=== PATIENT | male | born 1990 | race Caucasian/White ===

== ENCOUNTER → 2022-07-16 10:42 | Outpatient (CLI) | payer BC, SELFPAY ==
--- NOTE | ~2022-07-16 | XR_ITS ---
EXAMINATION: XR chest 2V 07/16/2022 10:56 INDICATION: Tobacco use PROCEDURE: 2 view chest COMPARISON: 12/23/2019 FINDINGS: The lungs are clear. The cardiomediastinal silhouette is within normal limits. There are no pleural effusions. There is no pneumothorax suspected. IMPRESSION: 1: NO ACUTE CARDIOPULMONARY DISEASE. Reviewed, dictated and finalized at location B.
== END ==
LOC: EXPCRAD 10:44
PROVIDERS: PCP Emergency Medicine; Visit Provider Emergency Medicine
DX: Z72.0 Tobacco use (principal)
CPT/HCPCS: 71046

== ENCOUNTER 2025-10-19 10:04 | Emergency (ER) | payer BC, SELFPAY ==
--- NOTE | ~2025-10-19 | CT_ITS ---
EXAMINATION: CTA BRAIN/CAROTID DATE: 10/19/2025 12:45 INDICATION: Paresthesias TECHNIQUE: Computed tomographic angiography (CTA) of the head and neck was performed with 100 mL Omnipaque-350 intravenous contrast. Multiplanar reconstructions and maximum intensity projection 3D-reconstructions of the carotid arteries and of the intracranial arteries were created by the technologist on a separate workstation. Automated exposure control and iterative reconstruction technique were employed.The dose-length product was 1199.31 mGy-cm. COMPARISON: Head CT dated 10/19/2025 FINDINGS: Intracranial arteries Vertebral arteries are codominant. There is no hemodynamically significant stenosis in the vertebral, basilar and internal carotid arteries. Both A1 and P1 segments are patent. Patent anterior communicating artery and tiny patent bilateral posterior communicating arteries. There are no aneurysms identified. Cerebral arterial arborization appears symmetric. Mild emphysema. 6 mm subpleural nodule at the posterior right upper lobe. Carotid arteries: The aortic arch and the great vessels arising from the arch are normal in caliber with no dissection or hemodynamically significant stenosis. There is no evident atherosclerotic plaque with 0% stenosis of the right left carotid bulbs relative to normal distal artery lumen diameter (NASCET criteria). Bilateral vertebral arteries are codominant with no evidence stenosis. IMPRESSION: 1. 0% stenosis of the right left carotid bulbs relative to normal distal artery lumen diameter (NASCET criteria). 2. Unremarkable cerebral CT angiogram with no hemodynamically significant stenosis, thrombosis or aneurysm. 3. Mild emphysema with 6 mm indeterminate pulmonary nodule in the right upper lobe. Recommend six-month follow-up low-dose noncontrast chest CT. Reviewed, dictated and finalized at location A. UNTANT TAX IMPRESSION: 1. 0% stenosis of the right left carotid bulbs relative to normal distal artery lumen diameter (NASCET criteria). 2. Unremarkable cerebral CT angiogram with no hemodynamically significant steno sis, thrombosis or aneurysm. 3. Mild emphysema with 6 mm indeterminate pulmonary nodule in the right upper l obe. Recommend six-month follow-up low-dose noncontrast chest CT.
--- NOTE | ~2025-10-19 | XR_ITS ---
EXAMINATION: XR chest 1V portable COMPARISON: No comparisons available. HISTORY: arm numbness/tingling FINDINGS: The lungs are clear, no effusion. No pneumothorax. Heart is normal size. Mediastinal and hilar contours are within normal limits. Bony thorax no acute abnormality. Miscellaneous: None Impression: No acute cardiopulmonary abnormality. Reviewed, dictated and finalized at location P. ICAL TREATMENT OPERATOR Impression: No acute cardiopulmonary abnormality.
--- NOTE | ~2025-10-19 | CT_ITS ---
EXAMINATION: CT brain wo con DATE: 10/19/2025 10:59 INDICATION: Left arm numbness TECHNIQUE: Computed tomography (CT) of the head was performed without intravenous contrast. The dose-length product was 605.33 mGy-cm. COMPARISON: None FINDINGS: No gross intracranial mass effect or hemorrhage. No large acute ischemic event. Calvarial structures appear normal. IMPRESSION: 1. Noncontrast head CT within normal limits. No large acute ischemic event mass effect or hemorrhage. Reviewed, dictated and finalized at location A. IDENT OF [place]
[2025-10-19 10:07] VITALS: BP 158/98; PULSE 64; RESP 18; TEMP 36.4; O2SAT 100
--- NOTE | 2025-10-19 10:27 | ECG_ITS ---
Test Date: 2025-10-19 10:36:50 Measurements Intervals [place] Rate: 59 P: 43 NE: 163 QRS: 9 QRSD: 102 T: 69 QT: 385 QTc: 384 Interpretive Statements SINUS BRADYCARDIA NONSPECIFIC T-WAVE ABNORMALITY No previous ECG available for comparison Electronically Signed On 10-19-2025 14:43:32 BARGE PILOT by Romeo Elder M.D.
[2025-10-19 10:41] VITALS: BP 142/91; PULSE 64; RESP 15; RESP 17; O2SAT 99
[2025-10-19 10:47] VITALS: BP 142/91; PULSE 63; RESP 20; O2SAT 99
[2025-10-19 10:48] VITALS: PULSE 65
[2025-10-19 10:50] LABS: Hematocrit 46.0 % (42.0-52.0); Hemoglobin 16.2 g/dL (14.0-18.0); Immature Granulocyte Percent A 0.3 % (0-0.5); Lymphocytes Absolute Auto 2.09 K/mm3 (0.9-3.2); Mean Corpuscular HGB Conc 35.2 g/dl (32-36); Mean Corpuscular Hemoglobin 28.0 pg (26-34); Mean Corpuscular Volume 79.6 fl (80-100); Nucleated Red Blood Cells Absolute Auto 0.000 K/mm3 (0.0-0.012); Nucleated Red Blood Cells Perc 0.0 % (0.0-0.2); Platelet Count Result 180 k/mm3 (150-375); Red Blood Count 5.78 M/mm3 (4.6-6.20); White Blood Count 7.0 K/mm3 (4.5-10.0)
[2025-10-19 11:01] LABS: Alanine Aminotransferase 68 U/L (6-50); Albumin Level 4.7 g/dL (3.5-5.1); Alkaline Phosphatase 59 U/L (38-126); Anion Gap 11 mmol/L (4-12); Aspartate Amino Transferase 37 U/L (17-59); Bilirubin,Total 0.5 mg/dL (0.2-1.3); Blood Urea Nitrogen 19 mg/dL (9-20); Calcium 9.5 mg/dL (8.4-10.2); Carbon Dioxide 21 mmol/L (22-30); Chloride 105 mmol/L (98-107); Estimated CRCL calculation 91 ml/min; Estimated Glomerular Filt Rate > 60; Glucose 104 mg/dL (65-110); INR 1.0; Potassium 3.8 mmol/L (3.4-5.0); Prothrombin Time 13.4 Seconds (11.1-14.7); Sodium 137 mmol/L (137-145); Total Protein 7.6 g/dL (6.3-8.2)
[2025-10-19 11:02] LABS: Partial Thromboplastin Time 25.6 Seconds (22.3-36.8)
[2025-10-19 11:12] LABS: Troponin I < 0.012 ng/mL (0.000-0.034)
--- OUTSIDE RECORDS SUMMARY | 2025-10-19 11:54 | XMS_ITS | Clinical Summary ---
Author Organization [facility] Address [address] [place] [address] Care Team Providers Care Cdl Bulk Driver Name Role Phone Nelsy Waggoner Primary Care Provider + Allergies No known active allergies Medications HYDROcodone-seven taminophen (NORCO) 5-325 mg per tabletIndicatio ns:Pain Take 1-2 tablets by mouth every 6 (six) hours as needed for pain 30 tablet 2 Active Additional Information Patient not taking.Reported on 06/23/2024 HYDROcodone-seven taminophen (NORCO) 5-325 mg per tabletIndicatio ns:Pain Take 1-2 tablets by mouth every 6 (six) hours as needed for pain 25 tablet 2 Active Additional Information Patient not taking.Reported on 06/23/2024 hydroCHLOROthia zide (MICROZIDE) 12.5 mg capsule Take 1 capsule (12.5 mg total) by mouth hand tool lapper before breakfast 4 Active sertraline (ZOLOFT) 50 mg tablet Take 1 tablet (50 mg total) by mouth daily 4 Active ubrogepant (UBRELVY) 100 mg tablet Take 1 tablet (100 mg total) by mouth 2 (two) times a day as needed 4 Active topiramate (TOPAMAX) 25 mg tablet Take 1 tablet (25 mg total) by mouth daily 4 Active gabapentin (NEURONTIN) 300 mg capsule Take 1 capsule (300 mg total) by mouth 3 times a day 90 capsule 5 Active Active Problems Problem Noted Date Diagnosed Date Dizziness and giddiness 06/24/2024 Left carpal tunnel syndrome 04/14/2022 Right carpal tunnel syndrome 04/14/2022 Ganglion cyst 04/14/2022 Chest pain 10/08/2021 Family history of coronary artery disease 2020 BMI 29.0-29.9,adult 10/08/2021 Mixed hyperlipidemia 10/08/2021 Cigarette nicotine dependenc e with nicotine-induced disorder 12/06/2019 Encounters Date Type Department Care Team Description 08/01/2025 12:10 PM CDT - 08/01/2025 2:42 PM CDT Emergency [facility] Emergency Department [address] [place] [phone] Paresthesias (Primary Dx) Discharge Disposition: Discharge to home or self care from Last 3 Months Surgical History Surgery Date Site/Laterality Comments SHOULDER SURGERY 11/30/2017 - 11/29/2018 Right repair fx collarbone with hardware HARDWARE REMOVAL Right hardware removed from shoulder CARPAL TUNNEL RELEASE 07/15/2022 Right CARPAL TUNNEL RELEASE 07/29/2022 Left LT. CTR Medical History Medical History Date Comments Chest pain 2020 had EKG and Stre ss test--cleared by cardio Covid-19 06/30/2022 Anxiety Ear problems Dizziness Tinnitus Headache Family History Medical History Relation Name Comments Coronary artery disease Father Heart attack Father Stroke Mother Relation Name Status Comments Father Mother Social History Tobacco Use Types Packs/Day Years Used Date Smoking Tobacco: Every Day Vaping Smokeless Tobacco: Current Tobacco Cessation:Ready to Q uit: Not Asked; Counseling Given: Not Answered AUDIT-C Answer Date Recorded Q1: How often do you have a drink containing alc ohol? 2-4 times a month 06/23/2024 Q2: How many drinks containi ng alcohol do you have on a typical day when you are drinking? 1 or 2 06/23/2024 Frequency of Binge Drinking Not on file 05/31 Personal Safety Answer Date Recorded Have you ever been in or are you currently in a harmful physical or emotional relationship or is someone making you feel afraid or unsafe? 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 Gender Identity Not on file Sexual Orientation Not on file Last Filed Vital Signs Vital Sign Reading Time Taken Comments Blood Pressure 145/91 08/01/2025 10:42 AM CDT Pulse 56 08/01/2025 10:42 AM CDT Temperature 36.8 C (98.2 F) 08/01/2025 10:42 AM CDT Respiratory Rate 20 08/01/2025 10:42 AM CDT Oxygen Saturation 97% 08/01/2025 10:42 AM CDT Inhaled Oxygen Concentration - - Weight 99.8 kg (220 lb) 08/01/2025 10:42 AM CDT Height 177.8 cm (5' 10) 08/01/2025 10:42 AM CDT Body Mass Index 31.57 08/01/2025 10:42 AM CDT Plan of Treatment Health Maintenance Due Date Last Done Comments Depression Screening 1989 Hepatitis C Screening 1989 Varicella Vaccines (1 of 2 - 13+ 2-dose series) 2002 Regular Well Visit/Exam 18-64 2007 Pneumococcal vaccine <65 (1 of 2 - PCV) 2008 HPV Vaccines (1 - 3-dose SCDM series) 2016 Influenza Vaccine (#1) 2025 DTaP/Tdap/Td Vaccine (4 - Td or Tdap) 12/29/2033 12/29/2023, 03/26/2014, 03/26/1995 Hepatitis B Screening Completed 04/01/2000 , 11/12/1999, 10/08/1999 Insurance [facility] [employer] Care Teams Cdl Bulk Driver Relationship Specialty Start Date End Date Nelsy aWggoner PA [address] [place] [address] [phone] PCP - General Nurse Practitioner 05/25/24
--- OUTSIDE RECORDS SUMMARY | 2025-10-19 11:54 | XMS_ITS | Encounter Summary ---
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 us Historical Provider Final Res ult documented in this encounter Visit Diagnoses Not on filedocumented in this encounter Additional Health Concerns Infection Onset Date Last Indicated Resolved Time COVID19 06/30/2022 06/30/2022 07/10/2022 3:05 AM CDT COVID: Recovered Comment:Added based on recent COVID infection. 07/10/2022 07/10/2022 11/07/2022 3:[address] documented as of this encounter Care Teams Hydropulper Relationship Specialty Start Date End Date No, Physician PCP - General 08/30/21 05/24/24 Nelsy Waggoner PA [address] [place] [address] PCP - General Nurse Practitioner 05/25/24 documented as of this encounter
--- OUTSIDE RECORDS SUMMARY | 2025-10-19 11:54 | XMS_ITS | Encounter Summary ---
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 Historical Provider Final Res ult * PROCEDURE - RESULT (06/03/2016 12:00 AM CDT) Narrative 06/03/2016 12:00 AM CDT Ordered by an unspecified provider. Historical Provider Final Res ult documented in this encounter Visit Diagnoses Not on filedocumented in this encounter Additional Health Concerns Infection Onset Date Last Indicated Resolved Time COVID19 06/30/2022 06/30/2022 07/10/2022 3:05 AM CDT COVID: Recovered Comment:Added based on recent COVID infection. 07/10/2022 07/10/2022 11/07/2022 3:[address] documented as of this encounter Care Teams Gis Software Developer Relationship Specialty Start Date End Date No, Physician PCP - General 08/30/21 05/24/24 Nelsy Waggoner PA [address] [place] [id number] PCP - General Nurse Practitioner 05/25/24 documented as of this encounter
--- NOTE | 2025-10-19 12:38 | ED.GENADULT ---
HPI - General Adult General Chief complaint: Neuro Symptoms/Deficit Stated complaint: left arm and face numb Time Seen by Provider: 10/19/25 11:55 History of Present Illness HPI narrative: 35-year-old male presenting to the emergency department for evaluation for multiple issues all of which are chronic. Patient states he has been having left arm tingling for the last few years and does have carpal tunnel surgery planned. Patient reports he has had intermittent dizziness that is been occurring for the last few years. Patient describes this as a moving sensation and has not for the he is going to pass out denies any change in vision. Patient also does report having some numbness under his left eye and also reports this is intermittent and not new. Patient reports he has had extensive workup for these issues. Patient states he has had recent MRIs and they found nothing. Patient denies any coughs colds or fevers, denies any change in hearing or ear pain. Patient states that he has tried meclizine for the vertigo and it has helped previously. Patient states that the reason he sought evaluation today is that the symptoms had acutely worsened but have since improved. Patient is in no distress at time of evaluation. Related Data Allergies Allergy/AdvReac Type Severity Reaction Status Date / Time No Known Allergies Allergy Verified 10/19/25 10:48 Review of Systems Review of Systems: All systems reviewed & are unremarkable except as noted in HPI and below PMFSH Past Medical History Medical History (Updated 10/19/25 @ 21:48 by Jermaine Franco MD) Right clavicle fracture Surgical History Surgical History (Updated 12/23/19 @ 12:05 by Antonietta Lu) No significant past surgical history Family History Family History (Updated 12/23/19 @ 12:05 by Antonietta Lu) Father Acute myocardial infarction Social History Social History (Updated 12/23/19 @ 12:04 by Antonietta Lu) Smoking status: Current every day smoker Alcohol intake: never Substance use: never Exam Narrative: APPEARANCE: Well appearing, no pain, no distress, well-nourished. HEAD: normocephalic, atraumatic. EYES: PERRLA/EOMI, conjunctivae clear. NOSE: Normal no drainage EARS:TMS clear with good light reflex. THROAT: Pharynx clear, no exudate. NECK: Supple. No adenopathy, no masses. RESPIRATORY: Airway patent, respirations nonlabored. Clear to auscultation bilaterally, no rales, rhonchi, wheezing. CARDIOVASCULAR: Regular rate and rhythm without murmurs rubs or gallops. ABDOMINAL: Soft, nontender, nondistended, normal bowel sounds MUSCULOSKELETAL: Moves all extremities. Strength/ROM intact, No edema, No calf tenderness. NEURO: Alert. Cranial nerves II through XII intact. Good gait. Good coordination SKIN: Warm, dry. Normal Color Course Vital Signs Vital signs: Vital Signs Temperature 97.6 F 10/19/25 10:07 Pulse Rate 64 10/19/25 10:07 Respiratory Rate 18 10/19/25 10:07 Blood Pressure 158/98 H 10/19/25 10:07 Pulse Oximetry 100 10/19/25 10:07 Temperature 97.6 F 10/19/25 10:07 Pulse Rate 69 10/19/25 14:07 Respiratory Rate 16 10/19/25 14:07 Blood Pressure 135/86 10/19/25 14:07 Pulse Oximetry 98 10/19/25 14:07 Oxygen Delivery Room Air 10/19/25 10:41 Medical Decision Making [facility] Narrative Medical decision making narrative: 35-year-old male presents to the emergency department for evaluation for multiple complaints. patient is currently afebrile with leukocytosis hemoglobin of 16.2. INR 1.0. No acute abnormalities on his CMP chest x-ray shows no acute cardiopulmonary mallet he had CT showed no acute findings CT brain also showed no significant acute findings. Suspect patient is having issues with sinusitis causing the facial paresthesia and the vertigo symptoms. Low concern for TIA, CVA, Lovell's palsy Patient was advised to continue have close follow-up with his physicians. Patient was provided meclizine for vertigo control. All questions concerns were addressed and patient was comfortable with the plan for discharge and close follow-up. Differential Diagnosis Differential Diagnosis: TIA CVA, Lovell's palsy, sinusitis, subdural hematoma, subarachnoid hemorrhage, radiculopathy Vital Signs Vital Signs: Vital Signs Temperature 97.6 F 10/19/25 10:07 Pulse Rate 64 10/19/25 10:07 Respiratory Rate 18 10/19/25 10:07 Blood Pressure 158/98 H 10/19/25 10:07 Pulse Oximetry 100 10/19/25 10:07 Temperature 97.6 F 10/19/25 10:07 Pulse Rate 69 10/19/25 14:07 Respiratory Rate 16 10/19/25 14:07 Blood Pressure 135/86 10/19/25 14:07 Pulse Oximetry 98 10/19/25 14:07 Oxygen Delivery Room Air 10/19/25 10:41 Lab Data Lab results reviewed: Yes I reviewed the patient's lab results. 10/19/25 10:44 10/19/25 10:44 Labs: Lab Results 10/19/25 10/19/25 Range/Units 10:40 10:44 WBC 7.0 (4.5-10.0) K/mm3 RBC 5.78 (4.6-6.20) M/mm3 Hgb 16.2 (14.0-18.0) g/dL Hct 46.0 (42.0-52.0) % MCV 79.6 L (80-100) fl MCH 28.0 (26-34) pg MCHC 35.2 (32-36) g/dl RDW 12.6 (11.5-14.5) % Plt Count 180 (150-375) k/mm3 MPV 10.4 (7.4-10.4) fl Immature Gran % (Auto) 0.3 (0-0.5) % Neut % (Auto) 58.2 (45.5-73.1) % Lymph % (Auto) 29.9 (18.3-44.2) % Emmons % (Auto) 9.9 H (2.6-8.5) % Eos % (Auto) 1.4 (0-4.4) % Baso % (Auto) 0.3 (0.2-1.2) % Lymph # (Auto) 2.09 (0.9-3.2) K/mm3 Emmons # (Auto) 0.7 H (0.1-0.6) K/mm3 Eos # (Auto) 0.1 (0-0.3) K/mm3 Baso # (Auto) 0.0 (0.0-0.1) K/mm3 Abs Immat Gran (auto) 0.02 (0.00-0.031) K/mm3 Absolute Neuts (auto) 4.1 (1.3-6.7) K/mm3 Absolute Nucleated RBC 0.000 (0.0-0.012) K/mm3 Nucleated RBC % 0.0 (0.0-0.2) % PT 13.4 (11.1-14.7) Seconds INR 1.0 APTT 25.6 (22.3-36.8) Seconds Sodium 137 (137-145) mmol/L Potassium 3.8 (3.4-5.0) mmol/L Chloride 105 (98-107) mmol/L Carbon Dioxide 21 L (22-30) mmol/L Anion Gap 11 (4-12) mmol/L BUN 19 (9-20) mg/dL Creatinine 1.20 (0.7-1.3) mg/dL Estim Creat Clear Calc 91 ml/min Estimated GFR > 60 (59 - ) Glucose 104 (65-110) mg/dL POC Capillary Glucose 116 H (65-105) mg/dl Calcium 9.5 (8.4-10.2) mg/dL Total Bilirubin 0.5 (0.2-1.3) mg/dL AST 37 (17-59) U/L ALT 68 H (6-50) U/L Alkaline Phosphatase 59 (38-126) U/L Troponin I < 0.012 (0.000-0.034) ng/mL Total Protein 7.6 (6.3-8.2) g/dL Albumin 4.7 (3.5-5.1) g/dL Imaging Data Attestation: I personally reviewed and interpreted this imaging study as follows: My impression: Chest x-ray: No acute cardiopulmonary abnormality Radiologist's impression: Impressions Head CT 10/19/25 10:59 IMPRESSION: 1. Noncontrast head CT within normal limits. No large acute ischemic event mass effect or hemorrhage. Chest X-Ray 10/19/25 11:24 Impression: No acute cardiopulmonary abnormality. Head/Neck CTA 10/19/25 12:54 IMPRESSION: 1. 0% stenosis of the right left carotid bulbs relative to normal distal artery lumen diameter (NASCET criteria). 2. Unremarkable cerebral CT angiogram with no hemodynamically significant stenosis, thrombosis or aneurysm. 3. Mild emphysema with 6 mm indeterminate pulmonary nodule in the right upper lobe. Recommend six-month follow-up low-dose noncontrast chest CT. Discharge Plan Discharge Clinical Impression: Vertigo, Paresthesia Patient Disposition: Home Condition: Stable Instructions: Antibiotic Form Additional Instructions: Meclizine as needed for vertigo control. Naproxen as directed. Continue to have close follow-up with your physicians. Patient Language: Slovenian Prescriptions: New naproxen [Naprosyn] 500 mg tablet 500 mg PO BID 7 Days Qty: 14 0RF No Action naproxen 500 mg tablet 500 mg PO BID Qty: 20 0RF Follow-up/Referrals: Rosaline,FAZAL Whittington [Primary Care Provider] Quality Stroke Scale Stroke Scale 1: Stroke scale date:: 10/19/25 Stroke scale time:: 12:40 1a Level of consciousness: alert-0 1b Level of consciousness questions: answers both correctly-0 1c Level of consciousness commands: obeys both correctly-0 2 Best gaze: normal-0 3 Visual: no visual loss-0 4 Facial palsy: normal-0 5a Motor: left arm: no drift-0 5b Motor: right arm: no drift-0 6a Motor: left leg: no drift-0 6b Motor: right leg: no drift-0 7 Limb ataxia: absent-0 8 Sensory: normal-0 9 Best language: no aphasia-0 10 Dysarthria: normal-0 11 Extinction and inattention: no abnormality-0 Level:: 0
[2025-10-19] MEDS: MECLIZINE HCL 25 MG TABLET PO (12:56)
[2025-10-19] MEDS: LACTATED RINGERS 1,000 ML 999 ML IV CONT (12:56)
[2025-10-19 14:07] VITALS: BP 135/86; PULSE 69; RESP 16; O2SAT 98
--- OUTSIDE RECORDS SUMMARY | 2025-10-19 14:43 | XMS_ITS | Encounter Summary ---
Author Organization [facility] - [facility] Address [address] [place] [address] Care Team Providers Care Earth Science Laboratory Technician Name Role Phone Nelsy Waggoner Primary Care Provider [phone] Russell Molina MD Unavailable [phone] Encounter Details Date Type Department Care Team (Late st Contact Info) Description 08/10/2024 [employer] Message [facility] Patient Accounts [address] [place], [place] [id number] [facility] Provider Action Needed Social History Tobacco Use Types Packs/Day Years Used Date Smoking Tobacco: Former Cigarettes 2 20 0 11/30/2003 - 11/30/2023 Smokeless Tobacco: Never Alcohol Use Standard Drinks/Week Comments Yes 0 (1 standard drink = 0.6 oz pur e alcohol) socially AUDIT-C Answer Date Recorded Frequency of Alcohol Consumption Monthly or less 09/15/2019 Average Number of Drinks 1 or 2 019 Frequency of Binge Drinking Less than monthly PHQ-2 Answer Date Recorded Patient Health Questionnaire-2 Score 0 04/13/2024 Sex and Gender Information Value Date Recorded Sex Assigned at Male 12/16/2024 8:52 AM SCIENCE TECHNICIAN Legal Sex Male 10:34 PM SCIENCE TECHNICIAN Gender Identity Male 12/16/2024 8:52 AM SCIENCE TECHNICIAN Sexual Orientation Not on file 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 Not on file Not on file documented as of this encounter Plan of Treatment Upcoming Encounters Date Type Department Care Team (Late st Contact Info) Description 10/31/2025 10:00 AM SCIENCE TECHNICIAN Office Visit [facility] [address] [place] [phone] Sherwin Garcia MD [address] [place] [address] documented as of this encounter Visit Diagnoses Not on filedocumented in this encounter Care Teams Earth Science Laboratory Technician Relationship Specialty Start Date End Date Nelsy Waggoner APNP [address] [place] [address] PCP - General NURSE PRACTITIONER 09/15/19 Russell Molina MD [address] [facility] [address] [place] [phone] [place] Centralized Traffic Control Operator CARDIOVASCULAR DISEASE 01/04/20 documented as of this encounter
--- OUTSIDE RECORDS SUMMARY | 2025-10-19 14:43 | XMS_ITS | Encounter Summary ---
Author Organization [facility] Address [address] [place] [address] Care Team Providers Care Occupational Therapy Supervisor Name Role Phone Nelsy Waggoner Primary Care Provider [phone] Russell Molina MD Unavailable [phone] Encounter Details Date Type Department Care Team (Late st Contact Info) Description 05/07/[address] [facility] [address] [place], [place] [id number] , Generic Conversion, Social History Tobacco Use Types Packs/Day Years Used Date Smoking Tobacco: Never Assessed Sex and Gender Information Value Date Recorded Sex Assigned at Male 12/16/2024 8:52 AM DESIGNER ARCHITECT Legal Sex Male 10:34 PM DESIGNER ARCHITECT Gender Identity Male 12/16/2024 8:52 AM DESIGNER ARCHITECT Sexual Orientation Not on file documented as of this encounter Plan of Treatment Upcoming Encounters Date Type Department Care Team (Late st Contact Info) Description 10/31/2025 10:00 AM DESIGNER ARCHITECT Office Visit [facility] Medical [facility] Mult[facility]pec[facility]ty [facility] - [facility] [address] [facility], [address] [place] [address] Sherwin Garcia MD [address] [place] [address] documented as of this encounter Visit Diagnoses Not on filedocumented in this encounter Care Teams Occupational Therapy Supervisor Relationship Specialty Start Date End Date Nelsy Waggoner APNP [address] [place] [address] PCP - General NURSE PRACTITIONER 09/15/19 Russell Molina MD 3 [facility] [address] [place] [phone] [place] Business Management Associate CARDIOVASCULAR DISEASE 01/04/20 documented as of this encounter
--- OUTSIDE RECORDS SUMMARY | 2025-10-19 14:43 | XMS_ITS | Encounter Summary ---
Author Organization [facility] Address [address] [place] [address] Care Team Providers Care Take Up Operator Name Role Phone Nelsy Waggoner Primary Care Provider [phone] Russell Molina MD Unavailable [phone] Encounter Details Date Type Department Care Team (Late Contact Info) Description 08/08/2024 [employer] Message Enc [facility] Medical [facility] Mult[facility]pec[facility]ty Care - [address], [address] [place] [phone] [place] Provider RESULTS Social History Tobacco Use Types Packs/Day Years [...] Sex Assigned at Male 12/16/2024 8:52 AM INDUSTRIAL TWISTING MACHINE OPERATOR Legal Sex Male 10:34 PM INDUSTRIAL TWISTING MACHINE OPERATOR Gender Identity Male 12/16/2024 8:52 AM INDUSTRIAL TWISTING MACHINE OPERATOR Sexual Orientation Not on file 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 Not on file Not on file documented as of this encounter Plan of Treatment Upcoming Encounters Date Type Department Care Team (Late Contact Info) Description 10/31/2025 10:00 AM INDUSTRIAL TWISTING MACHINE OPERATOR Office Visit [facility] Mult[facility] - [facility] [address] [facility], [address] [place] [phone] Sherwin Garcia MD [address] [place] [address] documented as of this encounter Visit Diagnoses Not on filedocumented in this encounter Care Teams Take Up Operator Relationship Specialty Start Date End Date Nelsy Waggoner APNP [address] [place] [address] PCP - General NURSE PRACTITIONER 09/15/19 Russell Molina MD 3 [facility] [address] [place] [phone] [place] Carburizing Furnace Operator CARDIOVASCULAR DISEASE 01/04/20 documented as of this encounter
--- OUTSIDE RECORDS SUMMARY | 2025-10-19 14:43 | XMS_ITS | Clinical Summary ---
Author Organization [facility] Address [address] [place] [address] Care Team Providers Care Security Officer Name Role Phone Nelsy Waggoner Primary Care Provider [phone] Russell Molina MD Unavailable [phone] Allergies No known active allergies Medications busPIRone (BUSPAR) 10 MG tabletIndication s:Anxiety Take 1 tablet (10 mg total) by mouth 2 (two) times daily. 180 tablet 1 03/16/20 25 Active buPROPion XL (WELLBUTRIN XL) 150 MG 24 hr tabletIndication s:Anxiety Take 1 tablet (150 mg total) by mouth daily. 90 tablet 1 03/16/20 25 Active hydrOXYzine (ATARAX) 25 MG tabletIndication s:Anxiety TAKE 1 TABLET BY MOUTH ONCE DAILY NEEDED 30 tablet 04/25/20 25 Active ubrogepant (UBRELVY) 100 MG tabletIndication s:Migraine without aura, not intractable, without status migrainosus Take 1 tablet (100 mg total) by mouth 2 (two) times daily as needed. Max of 2 tablets (200 mg) in 24 hours 16 tablet 11 04/25/20 25 Active topiramate (TOPAMAX) 25 MG tabletIndication s:Migraine without aura, not intractable, without status migrainosus Take 1 tablet (25 mg total) by mouth nightly at bedtime. 30 tablet 11 04/25/20 25 Active clonazePAM (KLONOPIN) 0.5 MG tabletIndication s:Anxiety Take 1 tablet (0.5 mg total) by mouth 2 (two) times daily as needed for Anxiety. 10 tablet 06/08/20 25 Active hydroCHLOROthiaz nicolás (MICROZIDE) 12.5 MG capsuleIndicatio ns:Primary hypertension Take 1 capsule by mouth once daily 90 capsule 10/11/20 25 Active hydroCHLOROthiaz nicolás (MICROZIDE) 12.5 MG capsuleIndicatio ns:Primary hypertension Take 1 capsule (12.5 mg total) by mouth daily. 90 capsule 3 09/20/20 24 025 Discontinued Active Problems Problem Noted Date Diagnosed Date Dizziness and giddiness 06/24/2024 Ganglion cyst 04/14/2022 Left carpal tunnel syndrome 04/14/2022 Right carpal tunnel syndrome 04/14/2022 Family history of coronary artery disease 2020 Chest pain 10/08/2021 Mixed hyperlipidemia 10/08/2021 Cigarette nicotine dependence without complicati on 12/06/2019 Encounters Date Type Department Care Team Description 08/01/2025 Scan [facility] Scanned, [facility] from Last 3 Months Immunizations Immunization Administration Dates Next Due Dtp 03/26/1995 Hepatitis B Pediatric 04/01/2000,11/12/1999,07/1999 MMR 03/26/1995 Opv 03/26/1995 Tdap (Adacel) 12/29/2023,03/26/2014 Family History Medical History Relation Comments Heart Attack Father Heart Disease Father first heart jaren ck at age 57 Hypertension Maternal Grandfather Lung Cancer Maternal Grandfather Other Maternal Uncle Hypertension Mother Stroke Mother autoimmune disorder, unspecified Mother Hypertension Paternal Grandmother Other Sister Breast Cancer Neg Hx Colon Cancer Neg Hx Relation Status Comments Father Alive Maternal Grandfather Maternal Uncle Mother Alive Paternal Grandmother Sister Social History Tobacco Use Types Packs/Day Years Used Date Smoking Tobacco: Former Cigarettes 2 20 0 11/30/2003 - 11/30/2023 Smokeless Tobacco: Never Tobacco Cessation:Counseling Given: Yes Alcohol Use Standard Drinks/Week Comments Yes 0 (1 standard drink = 0.6 oz pur e alcohol) socially AUDIT-C Answer Date Recorded Frequency of Alcohol Consumption Monthly or less 09/15/2019 Average Number of Drinks 1 or 2 019 Frequency of Binge Drinking Less than monthly PHQ-2 Answer Date Recorded Patient Health Questionnaire-2 Score 0 03/16/2025 Sex and Gender Information Value Date Recorded Sex Assigned at Male 12/16/2024 8:52 AM HIGH SCHOOL COUNSELOR Legal Sex Male 10:34 PM HIGH SCHOOL COUNSELOR Gender Identity Male 12/16/2024 8:52 AM HIGH SCHOOL COUNSELOR Sexual Orientation Not on file 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 Not on file Not on file Not on file Last Filed Vital Signs Vital Sign Reading Time Taken Comments Blood Pressure 137/103 05/28/2025 11:47 PM CDT Pulse 65 05/28/2025 11:47 PM CDT Temperature 36 C (96.8 F) 05/28/2025 11:47 PM CDT Respiratory Rate 18 05/28/2025 11:4 7 PM CDT Oxygen Saturation 99% 05/28/2025 11: 47 PM CDT Inhaled Oxygen Concentration - - Weight 101.3 kg (223 lb 6.4 oz) 025 11:47 PM CDT Height 177.8 cm (5' 10) 05/28/2025 11: 47 PM CDT Body Mass Index 32.05 05/28/2025 11:47 PM CDT Plan of Treatment Upcoming Encounters Date Type Department Care Team (Late st Contact Info) Description 10/31/2025 10:00 AM HIGH SCHOOL COUNSELOR Office Visit [facility] Medical Group Multispecialty Care - [facility] [address] [facility], [address] [place] [address] Sherwin Garcia MD [address] [place] [address] Health Maintenance Due Date Last Done Comments Annual Physical 1992 Hepatitis C 2007 HPV Vaccines (1 - 3-dose SCD M series) 2016 COVID-19 Vaccine (2024-2 6 season) 2025 Influenza Adult (#1) 2025 DTaP, Tdap and Td Vaccines ( 3 - Td or Tdap) 12/29/2033 12/29/2023, 03/26/2014, 03/26/1995 Hepatitis B Vaccines Completed 04/01/2000, 11/12/1999, 10/08/1999 PHQ-2 (Physician [place]) Completed 03/16/2025 Hepatitis A Vaccines Aged Out No long er eligible based on patient's age to complete this topic Meningococcal B Vaccine Aged Out No l onger eligible based on patient's age to complete this topic Meningococcal Vaccine Aged Out No christian edgardo eligible based on patient's age to complete this topic Pneumococcal Vaccine: Pediatrics (0 to 5 Years) and At-Risk Patients (6 to 49 Years) Aged Out No longer eligible b ased on patient's age to complete this topic RSV Immunizations Under 20 Months Aged Out No longer eligible b ased on patient's age to complete this topic Insurance [employer] [place] [employer] [facility] Care Teams Security Officer Relationship Specialty Start Date End Date Nelsy Waggoner APNP [address] [place] [id number] PCP - General NURSE PRACTITIONER 09/15/19 Russell Molina MD [address] [facility] [address] [place] [address] [place] [employer] Designer CARDIOVASCULAR DISEASE 01/04/20
--- OUTSIDE RECORDS SUMMARY | 2025-10-19 14:43 | XMS_ITS | Encounter Summary ---
Author Organization [facility] Address [address] [place] [address] Care Team Providers Care Power Technician Name Role Phone Nelsy Waggoner Primary Care Provider [phone] Russell Molina MD Unavailable [phone] Encounter Details Date Type Department Care Team (Late Contact Info) Description 05/01/2025 [facility] Message Enc [facility] Medical Group Multispecialty Care - [address], [address] [place] [phone] [facility] Provider follow up Social History Tobacco Use Types Packs/Day Years [...] Sex Assigned at Male 12/16/2024 8:52 AM SYSTEM ADMIN Legal Sex Male 10:34 PM SYSTEM ADMIN Gender Identity Male 12/16/2024 8:52 AM SYSTEM ADMIN Sexual Orientation Not on file 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 Not on file Not on file documented as of this encounter Plan of Treatment Upcoming Encounters Date Type Department Care Team (Late Contact Info) Description 10/31/2025 10:00 AM SYSTEM ADMIN Office Visit [facility] Medical Group Multispecialty Care - [facility] [address] [facility], [address] [place] [phone] Sherwin Garcia MD [address] [place] [address] documented as of this encounter Visit Diagnoses Not on filedocumented in this encounter Additional Health Concerns Assessment Noted Time PHQ-9 Depression Total Score: 3 03/16/20 25 10:17 AM CDT documented as of this encounter Care Teams Power Technician Relationship Specialty Start Date End Date Nelsy Waggoner APNP [address] [place] [id number] PCP - General NURSE PRACTITIONER 09/15/19 Russell Molina MD [address] [facility] [address] [place] [phone] [employer] Teacher CARDIOVASCULAR DISEASE 01/04/20 documented as of this encounter
== END 2025-10-19 14:11 | disposition home or self-care (01) ==
PROVIDERS: Emergency Medicine; Emergency Provider Emergency Medicine; PCP Registered Nurse
DX: R42 Dizziness and giddiness (principal); R20.2 Paresthesia of skin; F17.200 Nicotine dependence, unspecified, uncomplicated; J43.9 Emphysema, unspecified; R91.1 Solitary pulmonary nodule; R94.31 Abnormal electrocardiogram [ECG] [EKG]; R00.1 Bradycardia, unspecified
CPT/HCPCS: 36415; 70450; 70496; 70498; 71045; 80053; 82948; 84484; 85025; 85610; 85730; 93005; 96360; 99284; A9270; J7120; Q9967